=== PATIENT | female | born 1950 | race African-American/Black ===

== ENCOUNTER 2020-06-23 09:37 | Emergency (ER) | payer MEDICARE, MEDICAID ==
[~2020-06-23] VITALS: Ht 157.5 cm; Wt 67.0 kg
[~2020-06-23 09:37] MED LIST: DIGO250T79 MT; LEVVL SQ; MECL-159 PO; METF-414 MT; VERA240C2 MT
[2020-06-23 11:04] LABS: EOSINOPHILS % 2.5 % (0.0-5.0); HEMATOCRIT. 31.5 % (36.0-48.0); HEMOGLOBIN. 9.4 g/dL (12.0-16.0); LYMPHOCYTES % 34.1 % (20.0-50.0); MEAN CORPUSCULAR HEMOGLOBIN 19.3 pg (28.0-32.0); MEAN CORPUSCULAR VOLUME 64.3 fL (81.0-99.0); MEAN PLATELET VOLUME 10.3 fl (7.4-10.4); MONOCYTES % 6.3 % (2.0-8.0); NEUTROPHILS % 56.1 % (40.0-76.0); PLATELET 214 x1000/uL (130-400); RED BLOOD CELL COUNT 4.89 mill/uL (4.2-5.4)
[2020-06-23 11:11] LABS: CHLORIDE 105 mEq/L (98-107)
[2020-06-23 11:14] LABS: PROTHROMBIN TIME 10.7 sec (9.6-11.0)
[2020-06-23 11:29] LABS: PLATELET ESTIMATE NORMAL
[2020-06-23 14:00] VITALS: BP 119/95
== END 2020-06-23 11:25 | disposition home or self-care (01) ==
LOC: ER 09:37 → EDBEDREQ 11:13 → EDBEDREQTM 11:13 → ER 11:25 → CANBEDREQ 18:16
DX: H54.7 Unspecified visual loss (principal); I10 Essential (primary) hypertension; E11.9 Type 2 diabetes mellitus without complications; Z88.0 Allergy status to penicillin; Z88.1 Allergy status to other antibiotic agents; Z88.6 Allergy status to analgesic agent; Z79.899 Other long term (current) drug therapy; Z79.4 Long term (current) use of insulin; Z98.890 Other specified postprocedural states; Z90.89 Acquired absence of other organs; Z00.00 Encounter for general adult medical examination without abnormal findings
CPT/HCPCS: 36415; 80053; 85025; 93005; 99283

== ENCOUNTER → 2020-06-29 | Outpatient (CLI) | payer MEDICARE, MEDICAID ==
[~2020-06-29] MED LIST changes: +garlic; +iron; +vitamin d PO
== END | disposition home or self-care (01) ==
LOC: LAB 07:20
PROVIDERS: ATTEND Ophthalmology
DX: Z01.812 Encounter for preprocedural laboratory examination (principal); Z20.828 Contact with and (suspected) exposure to other viral communicable diseases
CPT/HCPCS: C9803; U0003

== ENCOUNTER 2020-06-30 05:54 | Day surgery (SDC) | payer MEDICARE, MEDICAID ==
[~2020-06-30] VITALS: Ht 157.5 cm; Wt 67.0 kg
[~2020-06-30 05:54] MED LIST changes: +CYCLOPENTOLATE HCL 1% OPHTH DROPS 2ML LEFTEYE ONE; +PHENYLEPHRINE HCL 10% OPHTH DROPS 5ML LEFTEYE ONE; +TROPICAMIDE 1% OPHTH DROPS 15ML LEFTEYE ONE; -garlic; -iron; -vitamin d PO
[2020-06-30] MEDS ORDERED: BALANCED SALT IRRIG SOLN COMB1 500ML OP ONE (06:15)
[2020-06-30] MEDS ORDERED: SODIUM CHLORIDE 0.9% 1,000 ML IV SCH (06:45)
[2020-06-30] MEDS ORDERED: INSULIN REGULAR (HUMULIN R) 300UNITS/3ML IV NR (06:48)
[2020-06-30] MEDS ORDERED: HYALURONATE SODIUM 10 MG/ML 0.55ML SYRINGE IO ONE ×2 (06:58→08:19)
[2020-06-30] MEDS: LABETALOL 5MG/ML SYR 20 MG/4 ML SYRINGE IV NR ×2 (07:11→07:17)
[2020-06-30 07:17] VITALS: BP 192/93
[2020-06-30] MEDS ORDERED: BALANCED SALT IRRIG SOLN 15ML ONE (07:30)
[2020-06-30] MEDS ORDERED: TETRACAINE 0.5% OPHTH DROPS 4ML ONE (07:30)
[2020-06-30] MEDS ORDERED: LIDOCAINE HCL/PF 2% 20 MG/ML 10ML VIAL ONE (07:30)
[2020-06-30] MEDS ORDERED: CIPROFLOXACIN 0.3% OPHTH SOLN 2.5ML ONE (07:30)
[2020-06-30] MEDS ORDERED: PREDNISOLONE ACETATE 1% OPHTH DROPS 5ML ONE (07:30)
[2020-06-30] MEDS ORDERED: TRYPAN BLUE 0.5 ML DISP.SYRIN IO ONE (08:13)
[2020-06-30] MEDS ORDERED: vitamin d PO (08:38)
[2020-06-30] MEDS ORDERED: garlic (08:38)
[2020-06-30] MEDS ORDERED: iron (08:38)
== END 2020-06-30 10:35 | disposition home or self-care (01) ==
LOC: OR 05:54
PROVIDERS: ATTEND Ophthalmology
DX: E11.36 Type 2 diabetes mellitus with diabetic cataract (principal); H25.89 Other age-related cataract; I10 Essential (primary) hypertension; K21.9 Gastro-esophageal reflux disease without esophagitis; E78.00 Pure hypercholesterolemia, unspecified; Z79.84 Long term (current) use of oral hypoglycemic drugs; Z79.899 Other long term (current) drug therapy; Z98.890 Other specified postprocedural states; Z87.891 Personal history of nicotine dependence; Z88.0 Allergy status to penicillin; Z88.8 Allergy status to other drugs, medicaments and biological substances; Z88.1 Allergy status to other antibiotic agents; Z88.5 Allergy status to narcotic agent
CPT/HCPCS: 66984; 82962; J1815; J2250; J3010; J3490; Q9957; V2632

== ENCOUNTER 2020-10-04 15:42 | Emergency (ER) | payer MEDICARE, MEDICAID ==
[~2020-10-04] VITALS: Ht 157.5 cm; Wt 66.8 kg
[~2020-10-04 15:42] MED LIST changes: -CYCLOPENTOLATE HCL 1% OPHTH DROPS 2ML LEFTEYE ONE; -PHENYLEPHRINE HCL 10% OPHTH DROPS 5ML LEFTEYE ONE; -TROPICAMIDE 1% OPHTH DROPS 15ML LEFTEYE ONE; +garlic; +iron; +vitamin d PO
[2020-10-04] MEDS ORDERED: HYDROCODONE/ACETAMINOPHEN 5/325MG TABLET PO ONE (16:45)
[2020-10-04 18:45] LABS: CHLORIDE 100 mEq/L (98-107)
[2020-10-04 18:47] LABS: BASOPHILS % 0.4 % (0.0-2.0); EOSINOPHILS % 0.1 % (0.0-5.0); HEMATOCRIT. 31.1 % (36.0-48.0); HEMOGLOBIN. 9.4 g/dL (12.0-16.0); LYMPHOCYTES % 13.2 % (20.0-50.0); MEAN CORPUSCULAR HEMOGLOBIN 18.3 pg (28.0-32.0); MEAN CORPUSCULAR VOLUME 60.7 fL (81.0-99.0); MEAN PLATELET VOLUME 9.8 fl (7.4-10.4); MONOCYTES % 9.6 % (2.0-8.0); NEUTROPHILS % 76.7 % (40.0-76.0); PLATELET 211 x1000/uL (130-400); RED BLOOD CELL COUNT 5.12 mill/uL (4.2-5.4); RED CELL DISTRIBUTION WIDTH 17.4 % (11.6-14.6)
[2020-10-04 19:09] LABS: PLATELET ESTIMATE NORMAL
[2020-10-04] MEDS ORDERED: SODIUM CHLORIDE 0.9% 1,000 ML IV ONE (19:15)
[2020-10-04] MEDS ORDERED: ONDANSETRON 4MG ODT PO ONE (19:30)
[2020-10-04] MEDS ORDERED: DOCUSATE SODIUM 100MG CAPSULE PO ONE (19:30)
[2020-10-04] MEDS ORDERED: ACETAMINOPHEN 325MG TABLET PO ONE (19:30)
[2020-10-04] MEDS ORDERED: ONDA4TAB11 PO (21:19)
[2020-10-04] MEDS ORDERED: DOCU-275 MT (21:20)
[2020-10-04] MEDS ORDERED: HYDR-4346 MT (21:20)
[2020-10-05 01:44] VITALS: BP 180/72
== END 2020-10-05 01:47 | disposition home or self-care (01) ==
LOC: ER 15:42
DX: U07.1 COVID-19 (principal); I11.9 Hypertensive heart disease without heart failure; M25.512 Pain in left shoulder; M25.511 Pain in right shoulder; R14.0 Abdominal distension (gaseous); E11.9 Type 2 diabetes mellitus without complications
CPT/HCPCS: 36415; 71045; 74176; 80053; 83690; 83880; 84484; 85025; 87635; 96360; 96361; 99285; C9803; J7030; Q0162

== ENCOUNTER 2021-11-29 15:56 | Emergency (ER) | payer MEDICARE, MEDICAID ==
[~2021-11-29] VITALS: Ht 157.5 cm; Wt 75.0 kg
[~2021-11-29 15:56] MED LIST changes: +DOCU-275 MT; +HYDR-4346 MT; +ONDA4TAB11 PO
[2021-11-29 18:16] LABS: EOSINOPHILS % 2.2 % (0.0-5.0); HEMATOCRIT. 32.8 % (36.0-48.0); HEMOGLOBIN. 10.2 g/dL (12.0-16.0); LYMPHOCYTES % 22.6 % (20.0-50.0); MEAN CORPUSCULAR VOLUME 67.3 fL (81.0-99.0); MONOCYTES % 6.6 % (2.0-8.0); NEUTROPHILS % 67.6 % (40.0-76.0); PLATELET 184 x1000/uL (130-400); RED BLOOD CELL COUNT 4.87 mill/uL (4.2-5.4); RED CELL DISTRIBUTION WIDTH 16.6 % (11.6-14.6)
[2021-11-29 18:20] LABS: CHLORIDE 105 mEq/L (98-107)
[2021-11-29 18:28] LABS: PLATELET ESTIMATE NORMAL
[2021-11-29] MEDS ORDERED: CLONIDINE 0.1MG TABLET PO ONE (20:00)
[2021-11-29] MEDS ORDERED: HYDRALAZINE HCL 10MG TABLET PO ONE (21:15)
[2021-11-29] MEDS ORDERED: LABETALOL 5MG/ML SYR 20 MG/4 ML SYRINGE IV ONE (23:30)
[2021-11-30 00:17] VITALS: BP 171/94
== END 2021-11-30 01:08 | disposition home or self-care (01) ==
LOC: ER 15:56
DX: I10 Essential (primary) hypertension (principal); E11.9 Type 2 diabetes mellitus without complications; E78.00 Pure hypercholesterolemia, unspecified; R41.82 Altered mental status, unspecified; Z79.4 Long term (current) use of insulin; Z88.0 Allergy status to penicillin; Z88.5 Allergy status to narcotic agent
CPT/HCPCS: 36415; 70450; 71045; 80053; 82962; 83880; 84484; 85025; 93005; 96374; 99285; J3490

== ENCOUNTER 2022-04-29 15:12 | Emergency (ER) | payer MEDICARE, MEDICAID ==
[~2022-04-29] VITALS: Ht 157.5 cm; Wt 89.0 kg
[2022-04-29 15:31] VITALS: BP 196/89
[2022-04-29] MEDS ORDERED: MECL-159 MT (18:38)
[2022-04-29] MEDS ORDERED: SULF1TAB48 MT (18:38)
[2022-04-29] MEDS ORDERED: ONDA4TAB50 MT (18:38)
[2022-04-29] MEDS ORDERED: PYR200 MT (18:40)
[2022-04-29] MEDS ORDERED: MECLIZINE 25MG TABLET PO ONE (18:45)
[2022-04-29] MEDS ORDERED: MECLIZINE 25MG TABLET PO NR (19:00)
== END 2022-04-29 18:59 | disposition home or self-care (01) ==
LOC: ER 15:12
DX: R42 Dizziness and giddiness (principal); Z88.5 Allergy status to narcotic agent; I10 Essential (primary) hypertension; E11.9 Type 2 diabetes mellitus without complications; Z98.890 Other specified postprocedural states; N39.0 Urinary tract infection, site not specified; Z88.0 Allergy status to penicillin; Z88.1 Allergy status to other antibiotic agents; Z91.041 Radiographic dye allergy status; Z79.899 Other long term (current) drug therapy
CPT/HCPCS: 99282; J8597